=== PATIENT | male | born 1960 | race Hispanic/Latino ===

== ENCOUNTER 2021-06-28 11:09 | Emergency (ER) | payer OTHER ==
--- OUTSIDE RECORDS SUMMARY | 2021-06-28 11:13 | XMS REPORT | Continuity of Care Document ---
:1960 Author Organization [facility] t Address [address] [place] [address] Care Team Providers Name Role Phone JUMA BORGES Attending Clinician Unavailable RADHA ZALDIVAR Attending Clinician Unavailable Lab, Adc Fam Pob I Attending Clinician Unavailable José Miguel Crowley Attending Clinician José Miguel CAMPBELL Attending Clinician Unavailable DEMI Attending Clinician Unavailable KRZYSZTOF Attending Clinician Unavailable BEN Attending Clinician Unavailable Amara MELO, T Attending Clinician Unavailable SHERRELL Attending Clinician Unavailable Sherrell FABIAN Attending Clinician Doctor Unassigned, Name Attending Clinician Unavailable OUSMANE Attending Clinician Unavailable Payers Payer Name Policy Type Policy Number Effective Date Expiration Date S lidia [employer]IS[employer] CHOICE POS [id number] 2000 00:00:00 II Problems Condition Condition Condition Status Onset Resolution Last Treating Co mments Source Name Details Category Date Date Treatment Clinician Date 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 Trigger Trigger Disease Active [facility] finger, finger, 5-14 Health right right 00:00: middle middle 00 finger finger STEMI (ST STEMI (ST Disease Active Uni vers elevation elevation 3-25 [place] of myocardial myocardial [place] infarction infarction 00 Me dical ) ) Branch Morbid Morbid Disease Active Univers obesity obesity 3-23 [place] of with body [place] mass [place] mass index 00 [place] dical of of Branch 40.0-49.9 40.0-49.9 Obesity Obesity Disease Active Univers (BMI (BMI 3-22 ity of 30-39.9) 30-39.9) 00:00: [address] Branch History of History of Problem Resolve Univers Heart Heart d ity of attack attack [place] [facility] History of History of Problem Resolve Univers High blood High blood d it y of pressure pressure [place] [facility] Carpal Carpal Problem Active Univers tunnel tunnel ity of syndrome, syndrome, [place] right right Physici ans Acquired Acquired Problem Active Unive rs trigger trigger ity of finger of finger of [place] right right Physici index index ans finger finger Acquired Acquired Problem Active Unive rs trigger trigger ity of finger of finger of [place] right right Physici middle middle ans finger finger Allergies, Adverse Reactions, Alerts Allergy Allergy Status Severity Reaction(s) Onset Inactive Treating Comm ents Source Name Type Date Date Clinician NO KNOWN Drug Active Univers ALLERGIE Class ity of S [facility] Social History Social Habit Start Date Stop Date Quantity Comments Source Exposure to Not sure [facility] SARS-CoV-2 (event) Tobacco use and 2020-10-31 2020-10-31 Never used [facility] exposure 00:00:00 00:00:00 Alcohol intake 2020-10-31 2020-10-31 Current drinker [facility] alth 00:00:00 00:00:00 of alcohol (finding) Alcohol Comment 2017-09-08 2017-09-08 1 beer/month Univers ity of 00:00:00 00:00:00 [facility] Sex Ass[birth year] [facility] 00:00:00 00:00:00 Smoking Status Start Date Stop Date Source Never smoker [facility] Former smoker 2017-09-08 00:00:00 2017-09-08 00:00:[address] [facility] Medications Ordered Filled Start Stop Current Ordering Indication Dosage Frequency Signature Comments Components Source Medication Medication Date Date Medication? Clinician (SIG) Name Name Acetaminoph Acetaminoph Yes JUMA BORGES TAKE 1 T O Univers en-Codeine en-Codeine 4-29 M.D. 2 TABLETS ity of #3 300-30 #3 300-30 00:00: EVERY 4 TO [place] MG Oral MG Oral 00 6 HOURS Phy sici Tablet Tablet NEEDED FOR ans PAIN. aspirin 81 Yes 81mg Take 81 mg U nivers mg chewable 3-25 by mouth ity of tablet 20:37: daily. [address] calcium Yes 1{tbl} Take 1 Univer s carbonate 3-25 tablet by ity o f (TUMS) 200 20:37: mouth [place] mg calcium 13 daily. Medical (500 mg) Branch chewable tablet pantoprazol Yes 40mg Take 40 mg Univers e 40 mg EC 3-25 by mouth ity o f tablet 20:37: daily. [address] aspirin 81 Yes 81mg Take 81 mg U nivers mg chewable 3-25 by mouth ity of tablet 20:37: daily. [address] calcium Yes 1{tbl} Take 1 Univer s carbonate 3-25 tablet by ity o f (TUMS) 200 20:37: mouth [place] mg calcium 13 daily. Medical (500 mg) Branch chewable tablet pantoprazol Yes 40mg Take 40 mg Univers e 40 mg EC 3-25 by mouth ity o f tablet 20:37: daily. [address] aspirin 81 Yes 81mg Take 81 mg U nivers mg chewable 3-25 by mouth ity of tablet 20:37: daily. [address] calcium Yes 1{tbl} Take 1 Univer s carbonate 3-25 tablet by ity o f (TUMS) 200 20:37: mouth [place] mg calcium 13 daily. Medical (500 mg) Branch chewable tablet pantoprazol Yes 40mg Take 40 mg Univers e 40 mg EC 3-25 by mouth ity o f tablet 20:37: daily. [address] aspirin 81 Yes 81mg Take 81 mg U nivers mg chewable 3-25 by mouth ity of tablet 20:37: daily. [address] calcium Yes 1{tbl} Take 1 Univer s carbonate 3-25 tablet by ity o f (TUMS) 200 20:37: mouth [place] mg calcium 13 daily. Medical (500 mg) Branch chewable tablet pantoprazol Yes 40mg Take 40 mg Univers e 40 mg EC 3-25 by mouth ity o f tablet 20:37: daily. [address] atorvastati Yes 80mg Take 1 Univ ers n 80 mg 3-25 tablet by ity of tablet 00:00: mouth [place] 00 every Medical evening. Branch lisinopril 2018-0 Yes 20mg Take 1 Unive rs 20 mg 3-25 tablet by ity of tablet 00:00: mouth [place] 00 daily. Medical Branch metoprolol 2018-0 Yes 25mg Take 1 Unive rs tartrate 25 3-25 tablet by ity of mg tablet 00:00: mouth 2 [place] 00 (two) Medical times Branch daily. furosemide 2018-0 Yes 20mg Take 1 Unive rs 20 mg 3-25 tablet by ity of tablet 00:00: mouth [place] 00 every Medical morning Branch and evening. ticagrelor 2018-0 Yes 90mg Take 1 Unive rs 90 mg 3-25 tablet by ity of tablet 00:00: mouth 2 [place] 00 (two) Medical times Branch daily. nitroglycer 2018-[address] 1 Uni vers in 0.4 mg 3-25 tablet ity of sublingual 00:00: under the [place] tablet 00 tongue Medical every 5 Branch (five) minutes as needed for Chest pain. atorvastati 2018-0 Yes 80mg Take 1 Univ ers n 80 mg 3-25 tablet by ity of tablet 00:00: mouth [place] 00 every Medical evening. Branch lisinopril 2018-0 Yes 20mg Take 1 Unive rs 20 mg 3-25 tablet by ity of tablet 00:00: mouth [place] 00 daily. Medical Branch metoprolol 2018-0 Yes 25mg Take 1 Unive rs tartrate 25 3-25 tablet by ity of mg tablet 00:00: mouth 2 [place] 00 (two) Medical times Branch daily. furosemide 2018-0 Yes 20mg Take 1 Unive rs 20 mg 3-25 tablet by ity of tablet 00:00: mouth [place] 00 every Medical morning Branch and evening. ticagrelor 2018-0 Yes 90mg Take 1 Unive rs 90 mg 3-25 tablet by ity of tablet 00:00: mouth 2 [place] 00 (two) Medical times Branch daily. nitroglycer 2018-[address] 1 Uni vers in 0.4 mg 3-25 tablet ity of sublingual 00:00: under the [place] tablet 00 tongue Medical every 5 Branch (five) minutes as needed for Chest pain. atorvastati 2018-0 Yes 80mg Take 1 Univ ers n 80 mg 3-25 tablet by ity of tablet 00:00: mouth [place] 00 every Medical evening. Branch lisinopril 2018-0 Yes 20mg Take 1 Unive rs 20 mg 3-25 tablet by ity of tablet 00:00: mouth 00 daily. Medical Branch metoprolol 2018-0 Yes 25mg Take 1 Unive rs tartrate 25 3-25 tablet by ity of mg tablet 00:00: mouth 2 (two) Medical times Branch daily. furosemide 2018-0 Yes 20mg Take 1 Unive rs 20 mg 3-25 tablet by ity of tablet 00:00: mouth [place] 00 every Medical morning Branch and evening. ticagrelor 2018-0 Yes 90mg Take 1 Unive rs 90 mg 3-25 tablet by ity of tablet 00:00: mouth 2 (two) Medical times Branch daily. nitroglycer 2018-[address] 1 Uni vers in 0.4 mg 3-25 tablet ity of sublingual 00:00: under the [place] tablet 00 tongue Medical every 5 Branch (five) minutes as needed for Chest pain. atorvastati 2018-0 Yes 80mg Take 1 Univ ers n 80 mg 3-25 tablet by ity of tablet 00:00: mouth 00 every Medical evening. Branch lisinopril 2018-0 Yes 20mg Take 1 Unive rs 20 mg 3-25 tablet by ity of tablet 00:00: mouth 00 daily. Medical Branch metoprolol 2018-0 Yes 25mg Take 1 Unive rs tartrate 25 3-25 tablet by ity of mg tablet 00:00: mouth 2 [place] (two) Medical times Branch daily. furosemide 2018-0 Yes 20mg Take 1 Unive rs 20 mg 3-25 tablet by ity of tablet 00:00: mouth [place] 00 every Medical morning Branch and evening. ticagrelor 2018-0 Yes 90mg Take 1 Unive rs 90 mg 3-25 tablet by ity of tablet 00:00: mouth 2 [place] (two) Medical times Branch daily. nitroglycer 2018-[address] 1 Uni vers in 0.4 mg 3-25 tablet ity of sublingual 00:00: under the [place] tablet 00 tongue Medical every 5 Branch (five) minutes as needed for Chest pain. No known No [facility] Lisinopril Lisinopril Yes Uni vers 20 MG Oral 20 MG Oral ity of Tablet Tablet [place] [facility] Furosemide Furosemide Yes Uni vers 20 MG Oral 20 MG Oral ity of Tablet Tablet [place] [facility] Pantoprazol Pantoprazol Yes U nivers e Sodium 40 e Sodium 40 i ty of MG MG [place] Intravenous Intravenous P hysici Solution Solution ans [employer] [employer] ed ed Atorvastati Atorvastati Yes U nivers n Calcium n Calcium ity o f 80 MG Oral 80 MG Oral [place] as Tablet Tablet Physici ans Metoprolol Metoprolol Yes Uni vers Tartrate 25 Tartrate 25 i ty of MG Oral MG Oral [place] Tablet Tablet Physici ans Vital Signs Vital Name Observation Time Observation Value Comments Source Body height 2020-09-09 14:31:00 68 [in_us] [facility] Weight 2020-09-09 14:31:00 189 [lb_av] [facility] Body mass index 2020-09-09 14:31:00 28.74 kg/m2 [facility] (BMI) [Ratio] Physicians Procedures Procedure Date / Time Performed Performing Clinician Tori Ramirez - 2020-10-08 00:00:00 [facility] [place] COVID-19/SARS-Cov-2 Physicians History of Hand [facility] [place] [facility] History of Wrist [facility] [place] [facility] Plan of Care Planned Activity Planned Date Details Comments Source Future Scheduled 2020-10-10 . [facility] Test 00:00:00 COVID-19/SARS-Cov- Physician s 2 [code = . Ashley - COVID-19/SARS-Cov- 2] Future Scheduled 2020-10-10 . [facility] Test 00:00:00 COVID-19/SARS-Cov- Physician s 2 [code = . [place] - COVID-19/SARS-Cov- 2] Encounters Start End Encounter Admission Attending Care Care Encounter Source Date/Time Date/Time Type Type Clinicians Facility Department ID 2020-10-25 Outpatient JUMA BORGES [facility] [id number] [place] 02:54:59 Health 2021-06-23 2021-06-23 Outpatient [facility] [id number] [place] 00:00:00 00:00:00 RADHA [address] 2021-06-16 2021-06-16 Outpatient [facility] [id number] [place] 00:00:00 00:00:00 RADHA [address] 2021-06-02 2021-06-02 Outpatient KAYLEY, [facility] [id number] [place] 00:00:00 00:00:00 RADHA [address] 2021-05-26 2021-05-26 Outpatient KAYLEY, [facility] [id number] [place] 00:00:00 00:00:00 RADHA [address] 2021-05-19 2021-05-19 Outpatient KAYLEY, [facility] [id number] [place] 00:00:00 00:00:00 RADHA [address] 2021-05-08 2021-05-08 Outpatient KAYLEY, [facility] [id number] [place] 00:00:00 00:00:00 RADHA [address] 2021-04-23 2021-04-23 Outpatient KAYLEY, [facility] [id number] [place] 00:00:00 00:00:00 RADHA [address] 2021-04-20 2021-04-20 Outpatient KAYLEY, [facility] [id number] [place] 00:00:00 00:00:00 RADHA [address] 2021-04-17 2021-04-17 Outpatient KAYLEY, [facility] [id number] [place] 00:00:00 00:00:00 RADHA [address] 2021-04-06 2021-04-07 Outpatient KAYLEY, [facility] [id number] [place] 00:00:00 00:00:00 RADHA [address] 2021-03-23 2021-03-23 Outpatient [facility] [id number] [place] 00:00:00 00:00:[address] 2021-02-10 2021-02-10 Outpatient KAYLEY, [facility] [id number] [place] 00:00:00 00:00:00 RADHA [address] 2020-10-31 2020-10-31 Office Juma Borges [facility] [id number] [place] 12:21:40 13:47:22 Visit ORTHO AND [id number] Health SPINE [id number] MEDICAL [id number] PLA[place] 2 2020-10-31 2020-10-31 Office Juma Borges [facility] [id number] 12:21:40 13:47:22 Visit ORTHO AND [id number] SPINE [id number] MEDICAL [id number] PLAZA 2 2020-10-09 2020-10-09 Laboratory Lab, Adc Fam Pob I [facility] 1.2. [id number] Univers 15:19:03 15:39:03 Only ClareLinsey ziegler [facility] [id number] ity [facility] [id number] David as Professio [phone] [place] dical [address] Office [facility] 2020-10-09 2020-10-09 Outpatient [facility] [id number] Univers 15:20:00 15:20:00 [id number] [facility] 2020-10-09 2020-10-09 Outpatient Parveen CAMPBELL [facility] [id number] Univers 15:20:00 15:20:00 LINSEY [facility] 2020-09-30 2020-09-30 Outpatient [facility] [id number] [place] 00:00:00 00:00:00 [address] i 2020-09-30 2020-09-30 [facility] [id number] [place] 00:00:00 00:00:00 JOSE 328 Method i 2020-09-26 2020-09-26 Outpatient [facility] [id number] [place] 00:00:00 00:00:00 212 Method i 2020-09-09 2020-09-09 Appointzofia BORGES [facility] Orthopedics [id number] [facility] 14:30:00 14:30:00 tJUMA STEPHENS M.D. at [facility] Georgina DENNISON. [facility] Orthopedic Physi ci and Spine [facility] 2020-03-03 2020-03-05 [facility] [id number] [place] 00:00:00 00:00:00 WOLF [address] i 2020-02-18 2020-02-18 Letter JOSE Maloney [id number] Univers 00:00:00 00:00:00 (Out) Zeina Coy DENISE [id number] it y of [facility] [id number] David as [phone] [facility] 019 [place] 2020-02-16 2020-02-16 Outpatient R SHERRELL [facility] [id number] Univers 13:00:00 13:00:00 CARLA ity of [facility] 2020-02-16 2020-02-16 Laboratory Lab, Adc Fam Pob I [facility] 1.2. [id number] [id number] Univers 12:37:07 12:57:07 Only Carla Wynne [facility] [id number] ity of [place] [id number] David as Professio [phone] [address] Office Building One 2020-02-16 2020-02-16 Letter Doctor JOSE [id number] Univers 00:00:00 00:00:00 (Out) UnassignedDENISE [id number] ity of [place] [facility] [id number] David as [phone] [address] 2019-08-20 2019-08-20 Outpatient BEN, [facility] [id number] [place] 00:00:00 00:00:00 WOLF [address] 2019-08-14 2019-08-14 Outpatient RACHANA ROMEO [facility] [id number] [place] 00:00:00 00:00:[address] Results Test Description Test Time Test Comments Results Result [facility] e Comments [U] XRAY HAND MIN 2020-09-09 Images Univers ity of 3 VWS RIGHT [id number] 14:23:00 [place] reported [place] Physicians this accession number.
[2021-06-28 11:51] LABS: Urine Blood Trace-intact (Negative); Urine Glucose 3+ (Negative); Urine Protein Negative (Negative); Urine Specific Gravity <=1.005 (1.005-1.030)
[2021-06-28 12:14] LABS: Absolute Lymphocytes (CBC) 1.6 K/uL (0.7-4.9); Hematocrit 47.4 % (39.6-49.0); Lymphocytes % 20.7 % (15.3-44.8); MPV 8.3 fL (7.6-11.3); RBC Red Blood Cell Count 5.18 M/uL (4.33-5.43)
[2021-06-28 12:15] LABS: Urine Bacteria NONE SEEN /HPF (NONE SEEN); Urine RBC <5 /HPF (NONE SEEN)
[2021-06-28] MEDS ORDERED: NA CHLORIDE 0.9% 1,000 ML ONE (12:16)
[2021-06-28 12:35] LABS: ALT/SGPT 51 U/L (12-78); AST/SGOT 21 U/L (15-37); Albumin 3.2 g/dL (3.4-5.0); Alkaline Phosphatase 129 U/L (45-117); Amylase 51 U/L (25-115); BUN Blood Urea Nitrogen 24 mg/dL (7-18); Bicarbonate 23 mmol/L (21-32); Bilirubin Direct 0.2 mg/dL (0-0.2); Bilirubin Total 0.6 mg/dL (0.2-1.0); CKMB Creatine Kinase MB 1.6 ng/mL (1.0-3.6); Creatine Phosphokinase 225 U/L (39-308); Lipase 115 U/L (73-393); Potassium 4.2 mmol/L (3.5-5.1); Protein, Total 7.4 g/dL (6.4-8.2); Sodium Level 131 mmol/L (136-145); Troponin (Emerg Dept Use Only) < 0.02 ng/mL (0.0-0.045)
[2021-06-28 12:37] LABS: Glucose Level 710 mg/dL (74-106)
--- NOTE | 2021-06-28 12:45 | RAD REPORT ---
EXAM DESCRIPTION: Boubacar Single View06/28/2021 12:39 pm CLINICAL HISTORY: Chest pain COMPARISON: 2016 FINDINGS: The lungs appear clear of acute infiltrate. The heart is normal size IMPRESSION: No acute abnormalities displayed
[2021-06-28 12:59] LABS: Protime INR 1.02
[2021-06-28] MEDS ORDERED: INSULIN -REGULAR HUMAN 50 UNIT/0.5 ML ML ONE (13:23)
[2021-06-28 14:04] LABS: Arterial Blood Carboxyhemoglob 1.4 % (0-1.5); Blood Gas Oxyhemoglobin 83.8 % (94-97); Blood O2 Saturation 85.8 % (92-98.5)
[2021-06-28 17:44] LABS: Potassium 3.8 mmol/L (3.5-5.1)
--- NOTE | 2021-06-28 18:12 | ER ---
Nurse's Notes [facility] Name: Jesus Horner Age: 60 yrs Sex: Male : 1960 Arrival Date: 06/28/2021 Time: 11:11 Bed 16 Private MD: Diagnosis: Other specified diabetes mellitus without complications;Coronavirus infection, unspecified Presentation: 06/28 11:18 Chief complaint: Patient states: Shortness of breath that started 5 days ago and has ww progressively got worse. Also complaining of extreme thirst, change in vision and weight loss. Coronavirus screen: Vaccine status: Patient reports receiving the 2nd dose of the covid vaccine. Client denies travel out of the [place] in the last 14 days. Ebola Screen: Patient negative for fever greater than or equal to 101.5 degrees Fahrenheit, and additional compatible Ebola Virus Disease symptoms Patient denies exposure to infectious person. Initial Sepsis Screen: Does the patient meet any 2 criteria? No. Patient's initial sepsis screen is negative. Does the patient have a suspected source of infection? No. Patient's initial sepsis screen is negative. Risk Assessment: Do you want to hurt yourself or someone else? Patient reports no desire to harm self or others. Onset of symptoms was June 23, 2021. 11:18 Method Of Arrival: Ambulatory ww 11:18 Acuity: BRIAN 3 ww Triage Assessment: 11:21 General: Appears in no apparent distress. Behavior is calm, cooperative, appropriate ww for age. Pain: Denies pain. EENT: No deficits noted. No signs and/or symptoms were reported regarding the EENT system. Neuro: No deficits noted. Level of Consciousness is awake, alert, obeys commands, Oriented to person, place, time, situation. Cardiovascular: Reports shortness of breath. Respiratory: Reports shortness of breath at rest Airway is patent Respiratory effort is even, unlabored, Respiratory pattern is regular, symmetrical, Onset: The symptoms/episode began/occurred gradually. GI: No deficits noted. No signs and/or symptoms were reported involving the gastrointestinal system. : No deficits noted. No signs and/or symptoms were reported regarding the genitourinary system. Derm: No deficits noted. No signs and/or symptoms reported regarding the dermatologic system. Skin is intact, is healthy with good turgor. Musculoskeletal: No deficits noted. 19:00 Respiratory: the patient reports symptoms have resolved. ic1 Historical: - Allergies: 11:21 No Known Allergies; ww - PMHx: 11:21 Diabetes - NIDDM; Diverticulitis; Hypertension; ww - PSHx: 11:21 Stent to the LAD; ww - Immunization history:: Client reports receiving the 2nd dose of the Covid vaccine. - Social history:: Smoking status: Patient denies any tobacco usage or history of. Patient/guardian denies using alcohol, street drugs, The patient lives with family. - Family history:: not pertinent. Screenin:23 Abuse screen: Denies threats or abuse. Denies injuries from another. Nutritional ww screening: No deficits noted. Tuberculosis screening: No symptoms or risk factors identified. Fall Risk None identified. Assessment: 11:42 General: Appears in no apparent distress. Behavior is calm, cooperative, Reports Sob ic1 and polyuria over the last couple of days. Denies cp at this time. Pt states he noticed he became severely winded while making up his bed. Denies dizziness. Pt states he has an extensive cardiac hx. Amb w steady gait. Breathing unlabored. Placed on card monitoring. Pain: Denies pain. Neuro: No deficits noted. Cardiovascular: Pulses are all present. Pt tachycardic Rhythm is sinus tachycardia. Respiratory: Airway is patent GI: No deficits noted. : Reports urinary frequency. EENT: No deficits noted. Derm: No deficits noted. Musculoskeletal: No deficits noted. 13:26 Reassessment: Patient appears in no apparent distress at this time. No changes from ic1 previously documented assessment. Patient and/or family updated on plan of care and expected duration. Pain level reassessed. Pt amb to bathroom w steady gait. General:. Respiratory: No deficits noted. Respiratory effort is even, unlabored, Respiratory pattern is regular, symmetrical. 15:43 Reassessment: Pt BS via fingerstick resulted at 451. Provider notified. ic1 16:49 Reassessment: Patient appears in no apparent distress at this time. No changes from ic1 previously documented assessment. Patient is alert, oriented x 3, equal unlabored respirations, skin warm/dry/pink. Patient denies pain at this time. Vital Signs: 11:18 BP 131 / 94; Pulse 121; Resp 20; Temp 98.7; Pulse Ox 98% on R/A; Weight 125.19 kg; ww Height 5 ft. 8 in. (172.72 cm); Pain 0/10; 11:42 BP 129 / 89; Pulse 115; Resp 20; Pulse Ox 98% on R/A; ic1 13:40 BP 129 / 84; Pulse 113; Resp 18; Pulse Ox 99% on R/A; ic1 15:18 Pulse 108; Resp 20; Pulse Ox 99% on R/A; ic1 16:49 BP 134 / 76; Pulse 122; Resp 20; Pulse Ox 99% on R/A; ic1 18:08 BP 125 / 69; Pulse 103; Resp 18; Pulse Ox 99% on R/A; ic1 11:18 Body Mass Index 41.96 (125.19 kg, 172.72 cm) ED Course: 11:11 Patient arrived in ED. am2 11:13 Sruthi Garduno MD is Attending Physician. ma2 11:21 Triage completed. ww 11:21 Arm band placed on right wrist. ww 11:42 Patient has correct armband on for positive identification. Call light in reach. Side ic1 rails up X2. 11:42 Inserted saline lock: 20 gauge in left antecubital area, using aseptic technique. Blood ic1 collected. 12:10 SARS-COV-2 RT PCR (Document "Date of Onset" if Symptomatic) Sent. ic1 12:11 Urine Microscopic Only Sent. ic1 12:11 Troponin (emerg Dept Use Only) Sent. ic1 12:11 Ptt, Activated Sent. ic1 12:11 Protime (+inr) Sent. ic1 12:11 Procalcitonin Sent. ic1 12:11 Lipase Sent. ic1 12:11 Lactate Sent. ic1 12:12 LFT's Sent. ic1 12:12 Ckmb Sent. ic1 12:12 CPK Sent. ic1 12:12 CBC with Diff Sent. ic1 12:12 Blood Culture Adult (2) Sent. ic1 12:12 Basic Metabolic Panel Sent. ic1 12:12 Amylase, Serum Sent. ic1 12:39 Chest Single View XRAY In Process Unspecified. EDMS 13:57 EKG done, by ED staff, reviewed by Sruthi Garduno MD. dh3 16:49 eyelet punch operator on. Pulse ox on. NIBP on. ic1 19:00 IV discontinued, intact, bleeding controlled, No redness/swelling at site. Pressure ic1 dressing applied. Administered Medications: 12:17 Drug: NS 0.9% 1000 ml Route: IV; Rate: 1 bolus; Site: left antecubital; ic1 12:18 CANCELLED (Physician Discretion): Rocephin (cefTRIAXone) 1 grams IV at calculated rate ic1 once; Given slow IV push per pharmacy instructions 12:18 CANCELLED (Physician Discretion): AZITHromycin 500 mg IVPB once over 1 hrs; (mix in 250 ic1 mL NS) 13:22 Drug: Insulin Regular Human 6 units {Co-Signature: danny (Raissa Michelle RN).} Route: IVP; ic1 Site: left antecubital; Outcome: 18:12 Discharge ordered by . ma2 19:00 Discharged to home ambulatory, with family. ic1 19:00 Condition: good 19:00 Discharge instructions given to patient, Instructed on discharge instructions, follow up and referral plans. Demonstrated understanding of instructions, follow-up care, medications, Prescriptions given X 3. 19:01 Patient left the ED. ic1 Signatures: Dispatcher [employer] Marlene Parkinson Deanna 3 Sruthi Garduno MD MD ma2 Wood, Whitney, RN RN ww Danica Dsouza RN RN ic1 Raissa delgado Corrections: (The following items were deleted from the chart) 11:23 11:18 Chief complaint: Patient states: Shortness of breath that started 5 days ago and ww has progressively got worse. Also complaining of extreme thirst and weight loss ww
--- NOTE | 2021-06-28 18:13 | EDPHYS ---
[facility] Name: Jesus Horner Age: 60 yrs Sex: Male : 1960 Arrival Date: 06/28/2021 Time: 11:11 Bed 16 Private MD: ED Physician Sruthi Garduno HPI: 06/28 12:14 This 60 yrs old Male presents to ER via Ambulatory with complaints of General ma2 Weakness, Shortness Of Breath. 12:14 The patient has shortness of breath at rest. Onset: The symptoms/episode began/occurred ma2 gradually, 3 day(s) ago. Associated signs and symptoms: Pertinent positives: productive cough, Pertinent negatives: chest pain, dizziness, loss of consciousness, numbness in extremities. Severity of symptoms: At their worst the symptoms were very mild in the emergency department the symptoms are unchanged. Historical: - Allergies: 11:21 No Known Allergies; ww - PMHx: 11:21 Diabetes - NIDDM; Diverticulitis; Hypertension; ww - PSHx: 11:21 Stent to the LAD; ww - Immunization history:: Client reports receiving the 2nd dose of the Covid vaccine. - Social history:: Smoking status: Patient denies any tobacco usage or history of. Patient/guardian denies using alcohol, street drugs, The patient lives with family. - Family history:: not pertinent. ROS: 12:14 Constitutional: Negative for fever, chills, and weight loss. ma2 12:14 All other systems are negative. Exam: 12:14 Constitutional: This is a well developed, well nourished patient who is awake, alert, ma2 and in no acute distress. Head/Face: Normocephalic, atraumatic. Eyes: Pupils equal round and reactive to light, extra-ocular motions intact. Lids and lashes normal. Conjunctiva and sclera are non-icteric and not injected. Cornea within normal limits. Periorbital areas with no swelling, redness, or edema. ENT: Nares patent. No nasal discharge, no septal abnormalities noted. Tympanic membranes are normal and external auditory canals are clear. Oropharynx with no redness, swelling, or masses, exudates, or evidence of obstruction, uvula midline. Mucous membranes moist. Neck: Trachea midline, no thyromegaly or masses palpated, and no cervical lymphadenopathy. Supple, full range of motion without nuchal rigidity, or vertebral point tenderness. No Meningismus. Chest/axilla: Normal chest wall appearance and motion. Nontender with no deformity. No lesions are appreciated. Cardiovascular: Regular rate and rhythm with a normal S1 and S2. No gallops, murmurs, or rubs. Normal PMI, no JVD. No pulse deficits. Respiratory: Lungs have equal breath sounds bilaterally, clear to auscultation and percussion. No rales, rhonchi or wheezes noted. No increased work of breathing, no retractions or nasal flaring. Abdomen/GI: Soft, non-tender, with normal bowel sounds. No distension or tympany. No guarding or rebound. No evidence of tenderness throughout. Back: No spinal tenderness. No costovertebral tenderness. Full range of motion. MS/ Extremity: Pulses equal, no cyanosis. Neurovascular intact. Full, normal range of motion. Neuro: Awake and alert, GCS 15, oriented to person, place, time, and situation. Cranial nerves II-XII grossly intact. Motor strength 5/5 in all extremities. Sensory grossly intact. Cerebellar exam normal. Normal gait. Vital Signs: 11:18 BP 131 / 94; Pulse 121; Resp 20; Temp 98.7; Pulse Ox 98% on R/A; Weight 125.19 kg; ww Height 5 ft. 8 in. (172.72 cm); Pain 0/10; 11:42 BP 129 / 89; Pulse 115; Resp 20; Pulse Ox 98% on R/A; ic1 13:40 BP 129 / 84; Pulse 113; Resp 18; Pulse Ox 99% on R/A; ic1 15:18 Pulse 108; Resp 20; Pulse Ox 99% on R/A; ic1 16:49 BP 134 / 76; Pulse 122; Resp 20; Pulse Ox 99% on R/A; ic1 18:08 BP 125 / 69; Pulse 103; Resp 18; Pulse Ox 99% on R/A; ic1 11:18 Body Mass Index 41.96 (125.19 kg, 172.72 cm) MDM: 11:29 Patient medically screened. ma2 12:14 Differential diagnosis: Anemia Anxiety Reaction asthma, Bronchitis Chronic Obstructive ma2 Pulmonary Disease. 13:08 Data reviewed: vital signs, nurses notes, EMS record, custodial records. Counseling: ma2 I had a detailed discussion with the patient and/or guardian regarding: the historical points, exam findings, and any diagnostic results supporting the discharge/admit diagnosis, the presence of at least one elevated blood pressure reading (>120/80) during this emergency department visit, lab results, radiology results, the need for further work-up and treatment in the hospital. Response to treatment: the patient's symptoms have markedly improved after treatment. ED course: Blood sugar is 750, gap is 13, no DKA, patient to have symptom of polyuria polydipsia, and mild dyspnea on exertion, he is not volume overloaded or in CHF at this time, he seems dehydrated clinically pulse is 115 bpm. Never been diagnosed with diabetes. This is a new onset diabetes, he needs to be admitted, I recommend admission for further management, and diabetes education. However patient declined my offer of admission, he understands risk of leaving AMA. He said that he will get another blood test in the next 48 hours, see PCP tomorrow or on Tuesday. I gave strict return precautions. Patient agrees to stay in the ER for few hours for further control of blood sugar before he goes home.. 13:11 ED course: Patient also has COVID positive. 06/28 11:39 Order name: Amylase, Serum 06/28 11:39 Order name: Basic Metabolic Panel 06/28 11:39 Order name: Blood Culture Adult (2) 06/28 11:39 Order name: CBC with Diff 06/28 11:39 Order name: CPK 06/28 11:39 Order name: Ckmb; Complete Time: 12:42 06/28 11:39 Order name: LFT's; Complete Time: 12:42 06/28 11:39 Order name: Lactate; Complete Time: 12:42 06/28 11:39 Order name: Lipase; Complete Time: 12:42 06/28 11:39 Order name: Procalcitonin; Complete Time: 14:11 06/28 11:39 Order name: Protime (+inr); Complete Time: 13:08 az06/28 11:39 Order name: Ptt, Activated; Complete Time: 13:08 06/28 11:39 Order name: Troponin (emerg Dept Use Only); Complete Time: 12:42 az2 06/28 11:39 Order name: Urine Microscopic Only; Complete Time: 12:42 az2 06/28 11:39 Order name: Chest Single View XRAY; Complete Time: 13:08 az06/28 11:39 Order name: SARS-COV-2 RT PCR (Document "Date of Onset" if Symptomatic); Complete Time: ma2 14:11 06/28 11:40 Order name: Amylase; Complete Time: 12:42 [facility] 06/28 11:40 Order name: Basic Metabolic Panel; Complete Time: 12:42 EDMS 06/28 11:40 Order name: Blood Culture [facility]RI 06/28 11:40 Order name: CBC with Automated Diff; Complete Time: 12:42 [facility] 06/28 11:40 Order name: Creatine Phosphokinase; Complete Time: 12:42 EDMS 06/28 11:51 Order name: Urine Dipstick-Ancillary; Complete Time: 12:42 [facility] 06/28 12:44 Order name: ABG: vbg not abg please; Complete Time: 14:11 [facility] 06/28 12:50 Order name: Glucose, Ancillary Testing; Complete Time: 13:08 [facility] 06/28 15:48 Order name: Glucose, Ancillary Testing; Complete Time: 16:04 [facility] 06/28 16:51 Order name: BMP; Complete Time: 17:58 az2 06/28 11:39 Order name: Accucheck [facility] 06/28 11:39 Order name: Cardiac monitoring; Complete Time: 12:12 [facility] 06/28 11:39 Order name: EKG - Nurse/Tech; Complete Time: 13:58 [facility] 06/28 11:39 Order name: IV Saline Lock - Large Bore; Complete Time: 12:11 az06/28 11:39 Order name: Labs collected and sent; Complete Time: 12:11 [facility] 06/28 11:39 Order name: O2 Per Protocol; Complete Time: 12:11 az06/28 11:39 Order name: O2 Sat Monitoring; Complete Time: 12:11 06/28 11:39 Order name: Urine Dipstick-Ancillary (obtain specimen); Complete Time: 12:12 [facility] 06/28 14:12 Order name: Blood Sugar [facility] Administered Medications: 12:17 Drug: NS 0.9% 1000 ml Route: IV; Rate: 1 bolus; Site: left antecubital; ic1 12:18 CANCELLED (Physician Discretion): Rocephin (cefTRIAXone) 1 grams IV at calculated rate ic1 once; Given slow IV push per pharmacy instructions 12:18 CANCELLED (Physician Discretion): AZITHromycin 500 mg IVPB once over 1 hrs; (mix in 250 ic1 mL NS) 13:22 Drug: Insulin Regular Human 6 units {Co-Signature: danny (Raissa Michelle RN).} Route: IVP; ic1 Site: left antecubital; Disposition Summary: 06/28/21 18:12 Discharge Ordered Location: Home ma2 Condition: Stable ma2 Diagnosis - Other specified diabetes mellitus without complications ma2 - Coronavirus infection, unspecified ma2 Followup: ma2 - With: Private Physician - When: Tomorrow - Reason: If symptoms return, Continuance of care Discharge Instructions: - Discharge Summary Sheet ma2 - Hyperglycemia ma2 - Blood Glucose Monitoring, Adult ma2 - Diabetes Mellitus and Exercise ma2 - Hyperglycemia, [id number] ma2 - COVID-19 ma2 - 10 Things You Can Do to Manage Your COVID-19 Symptoms at Home - [facility] [place] ma2 Forms: - Medication Reconciliation Form ma2 - Thank You Letter ma2 - Antibiotic Education ma2 - Prescription Opioid Use ma2 Prescriptions: - Metformin 500 mg Oral Tablet - take 1 tablet by ORAL route 2 times per day for 14 days Then take 1 tablet with ma2 morning meals AND evening meals; 30 tablet; Refills: 0, Product Selection Permitted - Zithromax Z-Yared 250 mg Oral Tablet - take 1 tablet by ORAL route as directed for 5 days Day 1 - take two (2) tablets ma2 one time. Day 2, 3, 4 , 5 take one (1) tablet once daily.; 6 tablet; Refills: 0, Product Selection Permitted - Medrol (Yared) 4 mg Oral Tablets, Dose Pack - take 1 tablet by ORAL route as directed - follow package instructions; 1 ma2 packet; Refills: 0, Product Selection Permitted Signatures: Dispatcher [employer] Rico Corbin FNP-C FNP-Cla1 Sruthi Garduno MD MD ma2 Raissa Michelle RN RN ww Creggett, Iesha, RN RN ic1 Raissa delgado Corrections: (The following items were deleted from the chart) 12:18 11:39 Rocephin (cefTRIAXone) 1 grams IV at calculated rate once; Given slow IV push per ic1 pharmacy instructions ordered. az2 12:18 11:39 AZITHromycin 500 mg IVPB once over 1 hrs; (mix in 250 mL NS) ordered. az2 ic1 13:06 13:06 HEMOGLOBIN A1C+CHEM A1C.LAB.BRZ ordered. EDMS EDMS
[2021-06-28 19:12] VITALS: TEMP 98.7
[2021-06-28 19:19] VITALS: O2SAT 99
[2021-06-28 19:23] VITALS: BP 125/69
== END 2021-06-28 19:01 | disposition home or self-care (01) ==
LOC: ER 11:09
DX: U07.1 COVID-19 (principal); E13.9 Other specified diabetes mellitus without complications; I10 Essential (primary) hypertension
CPT/HCPCS: 93005; 87040 ×2; 85025; 80048 ×2; 36415; 82150; 82550; 85610; 82947 ×2; 80076; 83605; 85730; 84484; 82553; 83690; 84145; 71045; 82805; 96374; 99285; U0003; J7030; 81003; 81015

== ENCOUNTER → 2023-07-07 | Emergency (ER) | payer OTHER ==
[~2023-07-07] MED LIST: ACETAMINOPHEN 500 MG TAB ONE; CEFTRIAXONE 1000 MG/VIAL ONE; NA CHLORIDE 0.9% 1,000 ML ONE; NA CHLORIDE 0.9% 50 ML ONE
[2023-07-07 18:39] LABS: Absolute Lymphocytes (CBC) 0.9 K/uL (0.7-4.9); Hematocrit 44.6 % (39.6-49.0); Lymphocytes % 9.6 % (15.3-44.8); MCV 93.1 fL (80-100); MPV 7.3 fL (7.6-11.3); Platelets 164 thou/uL (152-406); RBC Red Blood Cell Count 4.79 M/uL (4.33-5.43)
--- NOTE | 2023-07-07 18:42 | RAD REPORT ---
EXAM DESCRIPTION: [place] Single View07/07/2023 6:11 pm CLINICAL HISTORY: fever COMPARISON: 2021 FINDINGS: The lungs appear clear of acute infiltrate. The heart is normal size IMPRESSION: No acute abnormalities displayed
[2023-07-07 18:59] LABS: Protime INR 1.22
[2023-07-07 19:04] LABS: Albumin 3.7 g/dL (3.4-5.0); Bilirubin Total 0.4 mg/dL (0.2-1.0); Potassium 3.4 mEq/L (3.5-5.1); Protein, Total 7.6 g/dL (6.4-8.2)
[2023-07-07 21:07] LABS: Troponin High Sensitivity 6.9 pg/mL (<58.9)
[2023-07-07 21:22] LABS: Potassium 3.3 mEq/L (3.5-5.1)
--- NOTE | 2023-07-07 21:23 | ER ---
Nurse's Notes [facility] Name: Jesus Horner Age: 63 yrs Sex: Male : 1960 Arrival Date: 07/07/2023 Time: 17:17 Bed 18 Private MD: Diagnosis: Acute kidney failure, unspecified;Muscle weakness (generalized);Viral infection, unspecified;Dehydration Presentation: 07/07 17:29 Chief complaint: Patient states: Fatigued since yesterday. BP 115/48 at home HR ll1 127-130, fever 99.8. No cough or congestion. States he feels dehydrated. Coronavirus screen: Vaccine status: Patient reports receiving the 2nd dose of the covid vaccine. Client denies travel out of the [place] in the last 14 days. fatigue, fever, headache, Client presents with at least one sign or symptom that may indicate coronavirus-19. Standard/surgical mask placed on the client. Ebola Screen: Patient denies travel to an Ebola-affected area in the 21 days before illness onset. Initial Sepsis Screen: Does the patient meet any 2 criteria? No. Patient's initial sepsis screen is negative. Does the patient have a suspected source of infection? No. Patient's initial sepsis screen is negative. Risk Assessment: Do you want to hurt yourself or someone else? Patient reports no desire to harm self or others. Onset of symptoms was July 07, 2023. 17:29 Method Of Arrival: Ambulatory ll1 17:29 Acuity: BRIAN 2 ll1 Historical: - Allergies: 17:28 No Known Allergies; ll1 - PMHx: 17:28 Diabetes - NIDDM; Diverticulitis; Hypertension; Myocardial infarction; ll1 - PSHx: 17:28 Stent to the LAD; L knee replacement; ll1 - Immunization history:: Adult Immunizations up to date. - Social history:: Smoking status: Patient denies any tobacco usage or history of. - History obtained from: . Screenin:52 [facility] ED Fall Risk Assessment (Adult) History of falling in the last 3 months, cp4 including since admission No falls in past 3 months (0 pts) Confusion or Disorientation No (0 pts) Intoxicated or Sedated No (0 pts) Impaired Gait No (0 pts) Mobility Assist Device Used No (0 pt) Altered Elimination No (0 pt) Score/Fall Risk Level 0 - 2 = Low Risk Oriented to surroundings, Maintained a safe environment, Educated pt \T\ family on fall prevention, incl call for assistance when getting out of bed, Assessed \T\ reinforced patient's understanding of fall precautions, Provided non-skid footwear, Hourly rounding (assess needs \T\ fall precautionary measures) done. Abuse screen: Denies threats or abuse. Nutritional screening: No deficits noted. Tuberculosis screening: No symptoms or risk factors identified. Assessment: 18:52 General: Appears in no apparent distress. Behavior is calm, cooperative, appropriate cp4 for age. Pain: Denies pain. 20:00 General: Appears in no apparent distress. comfortable, Behavior is calm, cooperative. jw7 Pain: Denies pain. Neuro: Level of Consciousness is awake, alert, obeys commands, Oriented to person, place, time, situation. Cardiovascular: Heart tones S1 S2 present Capillary refill < 3 seconds Clubbing of nail beds is absent JVD is absent Patient's skin is warm and dry. Cardiovascular: Respiratory: Airway is patent Trachea midline Respiratory effort is even, unlabored, Respiratory pattern is regular, symmetrical, tachypnea. GI: Abdomen is round non-distended, Bowel sounds present X 4 quads. Abd is soft and non tender X 4 quads. : No deficits noted. No signs and/or symptoms were reported regarding the genitourinary system. EENT: No deficits noted. No signs and/or symptoms were reported regarding the EENT system. Derm: Skin is intact, is healthy with good turgor, Skin is dry, Skin is normal, Skin temperature is warm. Musculoskeletal: Circulation, motion, and sensation intact. Range of motion: intact in all extremities. 21:00 Reassessment: Patient appears in no apparent distress at this time. No changes from jw7 previously documented assessment. Patient and/or family updated on plan of care and expected duration. Pain level reassessed. Patient is alert, oriented x 3, equal unlabored respirations, skin warm/dry/pink. 21:25 General: Discharge pending completion of IV Fluids. jw7 22:07 Reassessment: Patient appears in no apparent distress at this time. Patient and/or jw7 family updated on plan of care and expected duration. Pain level reassessed. Patient is alert, oriented x 3, equal unlabored respirations, skin warm/dry/pink. Patient states feeling better. Patient states symptoms have improved. Vital Signs: 17:29 BP 156 / 93; Pulse 133; Resp 18; Temp 100.4; Pulse Ox 97% ; Weight 122.47 kg; Height 5 ll1 ft. 8 in. ; Pain 0/10; 20:00 BP 110 / 69; Pulse 114; Resp 25 S; Pulse Ox 97% on R/A; jw7 21:00 BP 105 / 60; Pulse 102; Resp 21 S; Pulse Ox 97% on R/A; jw7 21:25 BP 105 / 50; Pulse 105; Temp 99.9; ci 22:08 BP 107 / 56; Pulse 101; Resp 22 S; Pulse Ox 97% on R/A; jw7 17:29 Body Mass Index 41.05 (122.47 kg, 172.72 cm) ll1 17:29 Pain Scale: Adult ll1 ED Course: 17:22 Patient arrived in ED. ae5 17:25 Jeri Kinney is Attending Physician. ci 17:31 Triage completed. ll1 17:31 Arm band placed on. ll1 18:13 Chest Single View XRAY In Process Unspecified. EDMS 18:15 Inserted saline lock: 20 gauge in right antecubital area, using aseptic technique. nj1 Blood collected. 18:48 Elizabeth Sanchez is Primary Nurse. cp4 18:52 Bed in low position. Call light in reach. Side rails up X 1. cp4 22:08 No provider procedures requiring assistance completed. IV discontinued, intact, jw7 bleeding controlled, No redness/swelling at site. Pressure dressing applied. 22:09 Provided Education on: discharge instructions. jw7 Administered Medications: 19:04 Drug: NS 0.9% IV 1000 ml IV at 1000 ml once Route: IV; Rate: 1000 ml; Site: left cp4 antecubital; 22:09 Follow up: Response: No adverse reaction; IV Status: Completed infusion; IV Intake: jw7 1000ml 19:05 Drug: Acetaminophen PO 1000 mg PO once Route: PO; cp4 22:09 Follow up: Response: No adverse reaction; Marked relief of symptoms jw7 19:39 Drug: Rocephin IV 1 grams IV at calculated rate once; Given slow IV push per pharmacy jw7 instructions Route: IV; Rate: calculated rate; Site: right antecubital; 22:09 Follow up: Response: No adverse reaction; IV Status: Completed infusion; IV Intake: 20tfnw7 21:02 Drug: NS 0.9% IV 1000 ml IV at 1000 ml once Route: IV; Rate: 1000 ml; Site: right jw7 antecubital; 22:09 Follow up: Response: No adverse reaction; IV Status: Completed infusion; IV Intake: jw7 1000ml Medication: 18:52 VIS not applicable for this client. cp4 Intake: 22:09 IV: 50ml; Total: 50ml. jw7 22:09 IV: 1000ml; Total: 1050ml. jw7 22:09 IV: 1000ml; Total: 2050ml. jw7 Outcome: 21:22 Discharge ordered by . ci 22:08 Discharged to home ambulatory, jw7 22:08 Condition: stable 22:08 Discharge instructions given to patient, Instructed on discharge instructions, follow up and referral plans. Demonstrated understanding of instructions, follow-up care, 22:10 Patient left the ED. jw7 Signatures: Dispatcher [employer] EDMS Marissa Cox, RN RN ll1 Angie Mckeon RN RN jw7 Tatiana Fuller RN RN nj1 Elizabeth Sanchez cp4 IheolyaunekwuJeri Alexia aeAnalia
--- NOTE | 2023-07-07 21:23 | EDPHYS ---
Physician Documentation [facility] Name: Jesus Horner Age: 63 yrs Sex: Male : 1960 Arrival Date: 07/07/2023 Time: 17:17 Bed 18 Private MD: ED Physician Jeri Kinney HPI: 07/07 20:03 This 63 yrs old Male presents to ER via Ambulatory with complaints of Low BP. ci 20:03 Patient is a 63-year-old male with PMH [id number] diabetes, diverticulitis, ci hypertension, VT who presents to the ED with chief complaint of generalized weakness, cough, congestion, sore throat that began yesterday. Denies any sick contacts. Patient endorses tachycardia, low-grade fevers at home which prompted ED visit. Patient does feel like he is dehydrated. Denies chest pain, shortness of breath, diaphoresis, nausea/vomiting.. Historical: - Allergies: 17:28 No Known Allergies; ll1 - PMHx: 17:28 Diabetes - NIDDM; Diverticulitis; Hypertension; Myocardial infarction; ll1 - PSHx: 17:28 Stent to the LAD; L knee replacement; ll1 - Immunization history:: Adult Immunizations up to date. - Social history:: Smoking status: Patient denies any tobacco usage or history of. - History obtained from: . ROS: 20:03 Constitutional: Positive for body aches, chills, fatigue, fever, ci 20:03 Cardiovascular: Negative for chest pain, edema, orthopnea, 20:03 Respiratory: Negative for cough, shortness of breath, wheezing, 20:03 Abdomen/GI: Negative for abdominal pain, nausea, vomiting, and diarrhea, Exam: 20:03 Constitutional: This is a well developed, well nourished patient who is awake, alert, ci and in no acute distress. Head/Face: Normocephalic, atraumatic. Eyes: Pupils equal round and reactive to light, extra-ocular motions intact. Lids and lashes normal. Conjunctiva and sclera are non-icteric and not injected. Cornea within normal limits. Periorbital areas with no swelling, redness, or edema. ENT: Nares patent. No nasal discharge, no septal abnormalities noted. Tympanic membranes are normal and external auditory canals are clear. Oropharynx with no redness, swelling, or masses, exudates, or evidence of obstruction, uvula midline. Mucous membranes moist. Neck: Trachea midline, no thyromegaly or masses palpated, and no cervical lymphadenopathy. Supple, full range of motion without nuchal rigidity, or vertebral point tenderness. No Meningismus. Chest/axilla: Normal chest wall appearance and motion. Nontender with no deformity. No lesions are appreciated. Cardiovascular: Sinus tachycardia with a normal S1 and S2. No gallops, murmurs, or rubs. Normal PMI, no JVD. No pulse deficits. Respiratory: Lungs have equal breath sounds bilaterally, clear to auscultation and percussion. No rales, rhonchi or wheezes noted. No increased work of breathing, no retractions or nasal flaring. Abdomen/GI: Soft, non-tender, with normal bowel sounds. No distension or tympany. No guarding or rebound. No evidence of tenderness throughout. Back: No spinal tenderness. No costovertebral tenderness. Full range of motion. Skin: Warm, dry with normal turgor. Normal color with no rashes, no lesions, and no evidence of cellulitis. MS/ Extremity: Pulses equal, no cyanosis. Neurovascular intact. Full, normal range of motion. Neuro: Awake and alert, GCS 15, oriented to person, place, time, and situation. Cranial nerves II-XII grossly intact. Motor strength 5/5 in all extremities. Sensory grossly intact. Cerebellar exam normal. Normal gait. Psych: Awake, alert, with orientation to person, place and time. Behavior, mood, and affect are within normal limits. Vital Signs: 17:29 BP 156 / 93; Pulse 133; Resp 18; Temp 100.4; Pulse Ox 97% ; Weight 122.47 kg; Height 5 ll1 ft. 8 in. ; Pain 0/10; 20:00 BP 110 / 69; Pulse 114; Resp 25 S; Pulse Ox 97% on R/A; jw7 21:00 BP 105 / 60; Pulse 102; Resp 21 S; Pulse Ox 97% on R/A; jw7 21:25 BP 105 / 50; Pulse 105; Temp 99.9; ci 22:08 BP 107 / 56; Pulse 101; Resp 22 S; Pulse Ox 97% on R/A; jw7 17:29 Body Mass Index 41.05 (122.47 kg, 172.72 cm) ll1 17:29 Pain Scale: Adult ll1 MDM: 17:25 Patient medically screened. ci 20:03 Differential Diagnosis sepsis, flu, Pneumonia, dehydration, UTI, COVID-19. Data ci reviewed: vital signs, nurses notes, diagnostic data from outside facility, old medical records, lab test result(s), EKG, radiologic studies. Historians other than the Patient:. ED course: Arrives to the ED tachycardic and febrile. Sepsis workup obtained. He was hydrated with IV fluids, given Tylenol for his pain. Lactate is unremarkable, viral swabs unremarkable, low suspicion for sepsis.. 20:44 ED course: Labs show creatinine of 1.58, however chart review shows previous creatinine ci of 1.48, patient does endorse history of CKD. Was hydrated with 2 L NS bolus.. 07/07 17:53 Order name: Blood Culture Adult (2) ci 07/07 17:53 Order name: CBC with Diff; Complete Time: 18:46 ci 07/07 17:53 Order name: CMP; Complete Time: 19:13 ci 07/07 21:18 Interpretation: Abnormal: CRE 1.58; Last Creatnine 1.48. ci 07/07 17:53 Order name: Lactate w/ 2H reflex if indic.; Complete Time: 19:13 ci 07/07 17:53 Order name: Protime (+inr); Complete Time: 19:13 ci 07/07 17:53 Order name: Ptt, Activated; Complete Time: 19:13 ci 07/07 17:53 Order name: COVID-19 SARS RT PCR; Complete Time: 19:34 ci 07/07 17:53 Order name: Flu; Complete Time: 19:34 ci 07/07 19:35 Order name: Troponin High Sensitivity; Complete Time: 21:07 ci 07/07 20:07 Order name: Rapid Strep ci 07/07 20:55 Order name: Throat Culture EDMS 07/07 20:56 Order name: NT PRO-BNP; Complete Time: 21:07 EDMS 07/07 21:08 Order name: BMP; Complete Time: 21:25 ci 07/07 17:53 Order name: Chest Single View XRAY; Complete Time: 18:46 ci 07/07 18:47 Interpretation: No acute disease: Per Radiologist's finding(s): IMPRESSION: No acute ci abnormalities displayed Signed By: Dev Bashir MD Signed AT: 07/07/23 1842. 07/07 17:53 Order name: EKG; Complete Time: 17:54 ci 07/07 17:53 Order name: Accucheck; Complete Time: 18:48 ci 07/07 17:53 Order name: Cardiac monitoring; Complete Time: 18:48 ci 07/07 17:53 Order name: EKG - Nurse/Tech; Complete Time: 18:49 ci 07/07 17:53 Order name: IV Saline Lock - Large Bore; Complete Time: 18:31 ci 07/07 17:53 Order name: Labs collected and sent; Complete Time: 18:35 ci 07/07 17:53 Order name: O2 Per Protocol; Complete Time: 18:31 ci 07/07 17:53 Order name: O2 Sat Monitoring; Complete Time: 18:31 ci 07/07 17:53 Order name: Vital Signs; Complete Time: 18:48 ci Administered Medications: 19:04 Drug: NS 0.9% IV 1000 ml IV at 1000 ml once Route: IV; Rate: 1000 ml; Site: left [facility] antecubital; 22:09 Follow up: Response: No adverse reaction; IV Status: Completed infusion; IV Intake: jw7 1000ml 19:05 Drug: Acetaminophen PO 1000 mg PO once Route: PO; [facility] 22:09 Follow up: Response: No adverse reaction; Marked relief of symptoms jw7 19:39 Drug: Rocephin IV 1 grams IV at calculated rate once; Given slow IV push per pharmacy jw7 instructions Route: IV; Rate: calculated rate; Site: right antecubital; 22:09 Follow up: Response: No adverse reaction; IV Status: Completed infusion; IV Intake: 51main2 21:02 Drug: NS 0.9% IV 1000 ml IV at 1000 ml once Route: IV; Rate: 1000 ml; [address]; 22:09 Follow up: Response: No adverse reaction; IV Status: Completed infusion; IV Intake: jw7 1000ml Disposition Summary: 07/07/23 21:22 Discharge Ordered Notes: Location: Home ci Condition: Stable ci Diagnosis - Acute kidney failure, unspecified ci - Muscle weakness (generalized) ci - Viral infection, unspecified ci - Dehydration ci Followup: ci - With: Private Physician - When: 1 - 2 days - Reason: Recheck today's complaints, Re-evaluation by your physician Discharge Instructions: - Discharge Summary Sheet ci - Weakness ci - Acute Kidney Injury, Adult ci - Weakness, [id number] ci - Dehydration, Adult, [id number] ci - Viral Illness, Adult ci Forms: - Medication Reconciliation Form ci - Thank You Letter ci - Antibiotic Education ci - Prescription Opioid Use ci - Patient Portal Instructions ci - Leadership Thank You Letter ci Signatures: Dispatcher [employer] Marissa Joesph, RN RN ll1 Angie Mckeon RN RN jw7 Elizabeth Sanchez cp4 Jeri Kinney Corrections: (The following items were deleted from the chart) 21:18 19:14 Abnormal: CRE 1.58. ci ci
[2023-07-08 01:03] VITALS: O2SAT 97
[2023-07-08 01:18] VITALS: BP 107/56; TEMP 99.9
--- NOTE | 2023-07-11 17:05 | EKG ---
Test Date: 2023-07-07 Test Time: 17:57:02 Mid Level Business Analyst: CATY MEASUREMENT RESULTS: Intervals: Rate: 130 IL: QRSD: 78 QT: 400 QTc: 588 [place]: P: IL: QRS: 82 T: 2 INTERPRETIVE STATEMENTS: Sinus tachycardia Low voltage QRS ST & T wave abnormality, consider lateral ischemia Abnormal ECG Compared to ECG 06/28/2021 13:52:26 ST (T wave) deviation still present Possible ischemia still present Electronically Signed On 07-11-23 16:55:41 KEYING MACHINE OPERATOR by Sherman Richardson
== END ==
LOC: ER 17:17
DX: N17.9 Acute kidney failure, unspecified (principal); B34.9 Viral infection, unspecified; M62.81 Muscle weakness (generalized); E86.0 Dehydration; E11.9 Type 2 diabetes mellitus without complications; I10 Essential (primary) hypertension; I25.2 Old myocardial infarction; K57.92 Diverticulitis of intestine, part unspecified, without perforation or abscess without bleeding; Z11.52 Encounter for screening for COVID-19
CPT/HCPCS: 96365; 96361; 93005; 87040 ×2; 87070; 85025; 80048; 36415; 85610; 87081; 83605; 85730; 84484; 80053; 83880; 87635; 87804 ×2; 71045; 99284; 96366; J7030 ×2; J0696